=== PATIENT | male | born 1970 | race Caucasian/White ===

== ENCOUNTER 2024-07-07 10:05 | Day surgery (SDC) | payer MEDICARE, MEDICAID, SELFPAY ==
[2024-07-05 13:35] VITALS: BMI 24.3
--- NOTE | 2024-07-06 00:01 | EKG_ITS ---
[facility] Test Date: 2024-07-06 Pat Name: LAVERN AYALA Department: Room: - Gender: Male Computer Analyst: STUDENT : 1970 Requested By: Endy Gorman Order Number: [id number] Reading MD: Endy Gorman Measurements Intervals [place] Rate: 65 P: 37 NH: 127 QRS: -13 QRSD: 112 T: 68 QT: 408 QTc: 424 Interpretive Statements SINUS RHYTHM SEPTAL MYOCARDIAL INFARCTION , OF INDETERMINATE AGE Compared to ECG 03/29/2024 20:40:50 Myocardial infarct finding now present /store/S0/[id number].pdf
[2024-07-06 10:42] LABS: Basophils % (Auto) 1 % (0-2.5); Eosinophils # (Auto) 0.2 Thou/mm3 (0.0-0.5); Eosinophils % (Auto) 2 % (0-10); Hematocrit 40.9 % (41.0-53.0); Hemoglobin 13.1 g/dL (13.5-16.0); Immature Granulocytes % (Auto) 0 % (0-0); Immature Granulocytes Auto 0.02 Thou/mm3 (0.00-0.00); Lymphocytes # (Auto) 1.3 Thou/mm3 (1.0-4.8); Lymphocytes % (Auto) 18 % (10-50); Mean Corpuscular Hemoglobin 26.3 pg (25.0-35.0); Mean Corpuscular Volume 82 fL (80-100); Monocytes # (Auto) 0.4 Thou/mm3 (0.0-0.8); Monocytes % (Auto) 6 % (0-12); Neutrophils # (Auto) 5.3 Thou/mm3 (1.8-7.7); Neutrophils % (Auto) 73 % (37-80); Nucleated Red Blood Cell % 0 /100 WBC (0); Platelet Count 314 Thou/mm3 (140-440); Red Blood Count 4.99 Miln/mm3 (4.50-5.90); White Blood Count 7.2 Thou/mm3 (3.8-10.6)
[2024-07-06 10:55] LABS: Anion Gap 5 (7-16); BUN/Creatinine Ratio 20 Ratio (12-20); Blood Urea Nitrogen 45 mg/dL (9-23); Calcium 9.9 mg/dL (8.3-10.6); Carbon Dioxide 31.6 mMol/L (20.0-31.0); Chloride 99 mMol/L (98-107); Creatinine (Component) 2.2 mg/dL (0.6-1.3); Estimated Creatinine Clearance 39.6 mL/min (>60); Glucose 266 mg/dL (74-106); Osmolality,Calculated 292 (275-295); Potassium 4.8 mMol/L (3.4-5.1); Sodium 136 mMol/L (136-145); eGFR 35 See Note
[2024-07-06 11:25] LABS: Partial Thromboplastin Time 25.8 Seconds (22.0-36.0); Prothrombin Time 10.9 Seconds (9.0-12.2)
[2024-07-07] VITALS (12 sets, daily range): BP systolic 137–170; BP diastolic 79–99; PULSE 65–85; RESP 12–24; TEMP 37; O2SAT 92–99
[2024-07-07] MEDS: INSULIN HUM REGULAR 1 UNIT/0.01 ML (PER UNIT) 5 UNIT SC (13:52)
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
[2024-07-07] MEDS: SODIUM CHLORIDE 0.9% 500 ML 500 ML 350 ML IV (15:20)
[2024-07-07] MEDS: SODIUM CHLORIDE 0.9% 1000 ML 500 ML 100 ML IV (15:20)
[2024-07-07] MEDS: ONDANSETRON INJ 2 MG/ML INJ 2 ML 4 MG IV (15:22)
--- NOTE | 2024-07-07 17:15 | PC.NURSE ---
TR band removed at this time. Surgical site asymptomatic, no active bleeding, no hematoma noted on right upper extremity or around the surgical site. Capillary refill < 3 seconds. No noted changes in color or temperature on right upper extremity. Patient denies general and localized pain, no loss in sensation, no tingling or numbness felt to right upper extremity. Tagaderm and Coban wrap applied. Will continue to monitor
--- NOTE | 2024-07-07 17:30 | PC.NURSE ---
Surgical site remains with no significant changes at this time. Surgical area continues with raised area proximal and distal to the surgical site, bruised reshma-surgical area, no active bleeding noted on right upper extremity or around the surgical site. Capillary refill <3 seconds, hand noted to be cool to touch. No noted changes in color on right upper extremity. Patient denies general and localized pain, reports some tingling; but no numbness felt to right upper extremity. Tagaderm and Coban wrap in place, dry, and intact. Will continue to monitor
== END 2024-07-07 18:05 | disposition home health service (06) ==
PROVIDERS: PCP Family Medicine; Referring Provider Internal Medicine Cardiovascular Disease; Visit Provider Internal Medicine Cardiovascular Disease
DX: I25.10 Atherosclerotic heart disease of native coronary artery without angina pectoris (principal); E11.22 Type 2 diabetes mellitus with diabetic chronic kidney disease; Z86.73 Personal history of transient ischemic attack (TIA), and cerebral infarction without residual deficits; Z01.810 Encounter for preprocedural cardiovascular examination; I13.10 Hypertensive heart and chronic kidney disease without heart failure, with stage 1 through stage 4 chronic kidney disease, or unspecified chronic kidney disease; N18.30 Chronic kidney disease, stage 3 unspecified
CPT/HCPCS: 93458; 36415; 80048; 85025; 85610; 85730; 93005; 99152; 99153; A4649; C1887; C1894; J0171; J0461; J1643; J1815; J2250; J2310; J2371; J2405; J3010; J3490; J7030; J7040; Q9967; J1644; J2305

== ENCOUNTER 2024-07-08 14:10 | Emergency (ER) | payer MEDICARE, MEDICAID, SELFPAY ==
[2024-07-08 14:16] VITALS: BP 145/86; PULSE 96; RESP 24; TEMP 36.7; O2SAT 97; BMI 23.6
--- NOTE | 2024-07-08 14:17 | EKG_ITS ---
[facility] Test Date: 2024-07-08 Pat Name: LAVERN AYALA Department: Room: - Gender: Male Environmental Health Physician: : 1970 Requested By: Matthew Lopez (POOJA) Order Number: [id number] Reading MD: Matthew Lopez (POOJA) Measurements Intervals [place] Rate: 94 P: 52 CT: 165 QRS: 18 QRSD: 101 T: 82 QT: 370 QTc: 463 Interpretive Statements SINUS RHYTHM POSSIBLE LEFT ATRIAL ENLARGEMENT [-0.1mV P WAVE IN V1/V2] Compared to ECG 07/06/2024 10:14:17 Myocardial infarct finding no longer present /store/S0/[id number]/[id number]
--- NOTE | 2024-07-08 14:28 | XR_ITS ---
Examination: PA lateral chest 2 views TECHNIQUE: Upright PA lateral chest 2 views Exam date and time: July 08, 2024 1440 hours Comparison 2023 INDICATIONS: Onset chest pain today. FINDINGS: Normal heart size Subsegmental atelectasis right lower lung zone No pneumonia or pulmonary edema IMPRESSION: No pneumonia or pulmonary edema
--- NOTE | 2024-07-08 14:28 | PD.EDRME ---
Rapid Medical Screening Exam RME Arrival date/time: 07/08/24 14:10 54-year-old male presents emergency department with complaints of chest pain nausea vomiting patient reports having angiogram yesterday Chief Complaint: Chest Pain Time Seen by Provider: 07/08/24 14:28 Vital signs: Vital Signs Temperature 98.1 F 07/08/24 14:16 Pulse Rate 96 07/08/24 14:16 Respiratory Rate 24 H 07/08/24 14:16 Blood Pressure 145/86 H 07/08/24 14:16 Pulse Oximetry (%) 97 07/08/24 14:16 Oxygen Delivery Method Room Air 07/08/24 14:16
[2024-07-08] MEDS: METOCLOPRAMIDE INJ 5 MG/ML VIAL 2 ML 10 MG IVP (15:27)
[2024-07-08] MEDS: ONDANSETRON INJ 2 MG/ML INJ 2 ML 4 MG IV (15:27)
[2024-07-08] MEDS: SODIUM CHLORIDE 0.9% 1000 ML 1,000 ML 999 ML IV (15:28)
[2024-07-08 15:32] VITALS: BP 176/98; PULSE 99; RESP 17; O2SAT 97
[2024-07-08 15:48] LABS: Basophils % (Auto) 0 % (0-2.5); Eosinophils % (Auto) 0 % (0-10); Hematocrit 39.6 % (41.0-53.0); Immature Granulocytes % (Auto) 0 % (0-0); Immature Granulocytes Auto 0.03 Thou/mm3 (0.00-0.00); Lymphocytes # (Auto) 0.8 Thou/mm3 (1.0-4.8); Lymphocytes % (Auto) 9 % (10-50); Mean Corpuscular HGB Conc 32.8 g/dl (31.0-37.0); Mean Corpuscular Hemoglobin 26.4 pg (25.0-35.0); Mean Corpuscular Volume 80 fL (80-100); Monocytes # (Auto) 0.3 Thou/mm3 (0.0-0.8); Monocytes % (Auto) 3 % (0-12); Neutrophils # (Auto) 8.1 Thou/mm3 (1.8-7.7); Neutrophils % (Auto) 87 % (37-80); Nucleated Red Blood Cell % 0 /100 WBC (0); Platelet Count 305 Thou/mm3 (140-440); RDW Standard Deviation 40.6 fL (35.1-43.9); Red Blood Count 4.93 Miln/mm3 (4.50-5.90); White Blood Count 9.2 Thou/mm3 (3.8-10.6)
[2024-07-08 16:02] LABS: Prothrombin Time 11.3 Seconds (9.0-12.2)
[2024-07-08 16:10] LABS: B-Type Natriuretic Peptide 71 pg/mL (0-100)
[2024-07-08 16:11] LABS: Alanine Aminotransferase 23 U/L (10-49); Albumin, Serum 4.6 gm/dL (3.5-5.0); Albumin/Globulin Ratio 1.4 (1.2-2.2); Alkaline Phosphatase 101 U/L (46-116); Amylase 52 U/L (30-118); Anion Gap 10 (7-16); Aspartate Amino Transferase 17 U/L (0-34); BUN/Creatinine Ratio 18 Ratio (12-20); Bilirubin,Total 1.1 mg/dL (0.3-1.2); Blood Urea Nitrogen 36 mg/dL (9-23); Calcium 9.9 mg/dL (8.3-10.6); Calcium (Corrected) 9.9 mg/dL (8.5-10.1); Carbon Dioxide 27.4 mMol/L (20.0-31.0); Chloride 100 mMol/L (98-107); Estimated Creatinine Clearance 43.6 mL/min (>60); Globulin 3.3 gm/dL (2.3-3.5); Glucose 367 mg/dL (74-106); Lipase 24 U/L (12-53); Magnesium 2.2 mg/dL (1.6-2.6); Osmolality,Calculated 297 (275-295); Sodium 137 mMol/L (136-145); Total Protein 7.9 gm/dL (5.7-8.2); Troponin I < 0.020 ng/mL (0.0-0.045); eGFR 39 See Note
[2024-07-08 18:22] VITALS: BP 164/70; PULSE 94; RESP 16; O2SAT 98
--- NOTE | 2024-09-04 11:52 | PD.EDCHEST ---
ED Chest Pain RME/HPI General Chief Complaint: Chest Pain Stated Complaint: CHEST PAIN, PALPITATIONS S/P CARDIAC CATH Time Seen by Provider: 07/08/24 14:28 Arrival date/time: 07/08/24 14:10 RME / HPI RME / HPI narrative: 07/08/24 14:10 54-year-old male presents emergency department with complaints of chest pain nausea vomiting patient reports having angiogram yesterday This section includes all my notes and documentations, including HPI, PE, and ED course.? Anderson Renee MD HPI: 54 year old male here with N/V and chest/abominal pain. ROS: All negative except as documented in HPI. Physical Exam: General:? Alert and oriented.? No acute distress.?? Eyes:? Conjunctivae and lids clear.? EOMI.? PERRL. ENT:? No nasal congestion.? Pharynx normal.? Tympanic membrane normal bilaterally.??? Neck:? Supple.? No lymphadenopathy.? No JVD.?? Heart:? RRR.? Lungs:? No respiratory distress.? Good air movement.? No rhonchi, wheezing, rales.?? Chest:? No tenderness. Abdomen:? Soft and nontender.? Normal bowel sounds.? No distension.? No rebound or guarding.?? Back:? No CVA tenderness.?? Legs:? No clubbing, cyanosis, edema.? Skin:? Warm and dry.?? Neuro:? Alert and oriented X 3.? Cranial Nerves II-XII grossly intact.? No peripheral motor deficits. Musculoskeletal:? All major joints and bones are not tender with no limited ROM.? I reviewed all diagnostic test results. My interpretation of the EKG is sinus rhythm with nonspecific ST-T changes. My interpretation of the chest x-ray is no acute findings. Blood tests Glu 367. At this point, diagnoses include?Hyperglycemia and Vomiting. Treatment here included?IVF, Insulin, Zofran, and Reglan. Significant improvement noted subjectively and objectively. I discussed the case with our padded products finisher.? About the presentation and exam and diagnostics and treatments here.? And possible need of further care in the hospital.? Recommended outpatient followup. Based on my best medical judgment, made decision no further evaluation or treatment indicated at this time.? Patient understands and agrees to the discharge instructions customized and printed, see below. Discharge Instructions from Dr. Renee printed for you: 1. After extensive evaluation, there is no life-threatening condition. Such as heart attack. 2. Zofran and Reglan for nausea/vomiting. For good hydration, increase oral fluid and maintain clear urine. If dark or yellow, increase oral fluid. Clear liquid diet for 24 hours. 3. See a private doctor on 07/09/2024. Ask to review all test results and official radiology reports, to make sure you receive all necessary follow-ups and monitoring. To make sure there is no serious intra-abdominal condition, ask for help with more investigation not available here in the ER. Such as EGD or scoping the stomach, colonoscopy or scoping the colon, and referral to see pharmacy clerk. Ask to help you stay healthy, with good management of your diabetes, helping you to prevent future heart attacks and strokes, and with regular physical exam and health maintenance. 4. Seek immediate medical care with worsening or with any concerns. Anderson Renee MD Related Data Home Medications ?Medication ?Instructions ?Recorded ?Confirmed insulin glargine 100 unit/mL 100 unit subcut HS #0 vials 07/20/17 08/12/24 subcutaneous solution (Lantus U-100 Insulin) atorvastatin 40 mg tablet 80 mg PO HS 08/12/24 08/12/24 carvedilol 6.25 mg tablet 6.25 mg PO BID 08/12/24 08/12/24 omeprazole 20 mg capsule,delayed 20 mg PO QDAY 08/12/24 08/12/24 release Previous Rx's ?Medication ?Instructions ?Recorded amlodipine 10 mg tablet 10 mg PO QDAY #30 tabs 01/14/24 aspirin 81 mg tablet,delayed 81 mg PO QDAY #30 tabs 01/14/24 release clopidogrel 75 mg tablet 75 mg PO QDAY #30 tabs 01/14/24 furosemide 40 mg tablet 40 mg PO QAM #30 tabs 04/01/24 losartan 100 1 tab PO QDAY #30 tabs 04/01/24 mg-hydrochlorothiazide 12.5 mg tablet Allergies Allergy/AdvReac Type Severity Reaction Status Date / Time oxycodone Allergy Severe Rash Verified 01/08/25 15:32 Course Quality Measures none Orders Category Date Time Status CT Screening NOW Care 07/08/24 14:33 Completed EKG (ED ONLY) *Do not use* NOW Care 07/08/24 14:17 Completed Insert IV NOW Care 07/08/24 14:28 Completed EKG (ED Only) Stat Exams 07/08/24 14:17 Draft XR chest 2V Stat Exams 07/08/24 14:28 Completed Amylase Stat Lab 07/08/24 15:19 Completed B-Type Natriuretic Peptide Stat Lab 07/08/24 15:19 Completed CBC Stat Lab 07/08/24 15:19 Completed Comprehensive Metabolic Panel Stat Lab 07/08/24 15:19 Completed Lipase Stat Lab 07/08/24 15:19 Completed Magnesium Stat Lab 07/08/24 15:19 Completed Partial Thromboplastin Time Stat Lab 07/08/24 15:19 Completed Prothrombin Time with INR Stat Lab 07/08/24 15:19 Completed Troponin I Stat Lab 07/08/24 15:19 Completed Insulin Regular Med 07/08/24 17:42 Discontinued 10 unit IV X1 ONE Metoclopramide Inj [Reglan Inj] Med 07/08/24 14:32 Discontinued 10 mg IVP X1 ONE Ondansetron Inj [Zofran Inj] Med 07/08/24 14:28 Discontinued 4 mg IV X1 ONE Sodium Chloride 0.9% 1000 ml [Ns] 1,000 ml Med 07/08/24 14:32 Discontinued IV 999 mls/hr Vital Signs Vital signs: Vital Signs Temperature 98.1 F 07/08/24 14:16 Pulse Rate 96 07/08/24 14:16 Respiratory Rate 24 H 07/08/24 14:16 Blood Pressure 145/86 H 07/08/24 14:16 Pulse Oximetry (%) 97 07/08/24 14:16 Oxygen Delivery Method Room Air 07/08/24 14:16 Chest Pain Patient data External records reviewed:: [facility] previous records Clinical information provided by:: patient Social determinants that could affect healthcare access:: substance use Patient has the following chronic illnesses:: CAD How is presenting disease/condition affected by chronic disease/condition?: exacerbated by Evaluation data The following diagnostics were reviewed and interpreted by me:: lab results, radiology exam(s) and EKG tracing(s) Lab and/or radiology exams considered but not ordered:: none Interpretation Summary: normal diagnostics Medications / Prescriptions Medications or Prescriptions considered but not ordered:: none Medication administrations:: Medication Administration History Discontinued Medications Sodium Chloride (Ns) 1,000 mls @ 999 mls/hr IV .Q1H1M ONE Stop: 07/08/24 15:32 Last Infusion: 07/08/24 17:58 Dose: Infused Documented By: Admin: 07/08/24 15:28 Dose: 999 mls/hr Documented By: YURY Insulin Human Regular (Insulin Hum Regular 1 Unit/0.01 Ml (Per Unit)) 10 unit IV X1 ONE Stop: 07/08/24 17:43 Last Admin: 07/08/24 18:21 Dose: Not Given Documented By: YURY Non-Admin Reason: Patient Refused Metoclopramide HCl (Metoclopramide Inj 5 Mg/Ml Vial 2 Ml) 10 mg IVP X1 ONE; Protocol Stop: 07/08/24 14:33 Last Admin: 07/08/24 15:27 Dose: 10 mg Documented By: YURY Ondansetron HCl (Ondansetron Inj 2 Mg/Ml Inj 2 Ml) 4 mg IV X1 ONE; Protocol Stop: 07/08/24 14:29 Last Admin: 07/08/24 15:27 Dose: 4 mg Documented By: YURY IVF and Zofran and Reglan and Insulin Consultations Consultation(s) initiated? (list below): No Consultation #1 (Physician, Specialty, Details): I discussed the case with our padded products finisher.? About the presentation and exam and diagnostics and treatments here.? And possible need of further care in the hospital.? Recommended outpatient followup. Diagnosis Chest Pain Differential Diagnosis: pneumothorax, stable angina, unstable angina pectoris, atypical chest pain, st elevation myocardial infarction, costochondritis, chest pain and biliary colic Most likely diagnosis given after review of the tests above:: Hyperglycemia and Vomiting Admission Indicated Admission indicated?: not indicated Explain why admission is indicated or not indicated:: No criteria for admission Admission Request Was there a request for admission?: No Disposition Plan Disposition Plan: Discharge Discharge Attestation Discharge Attestation: The patient and all family members were given an opportunity to ask questions and understood the discharge instructions. Discharge instructions specifically effects, indications for sooner follow up or return to the emergency department, and the expected course of current diagnosis. Patient condition: Stable Discharge Plan Plan Patient Disposition: HOME (Self Care) Prescriptions/Referrals Prescriptions/Med Rec: No Action insulin glargine [Lantus U-100 Insulin] 100 U/ML solution 100 unit Sub-Q HS Qty: 0 amlodipine 10 mg tablet 10 mg PO QDAY Qty: 30 1RF clopidogrel 75 mg Tablet 75 mg PO QDAY Qty: 30 0RF aspirin 81 mg Tablet,Delayed Release (Dr/Ec) 81 mg PO QDAY Qty: 30 0RF carvedilol 6.25 mg Tablet 6.25 mg PO BID Rx Instructions: must administer with a meal/food omeprazole 20 mg Capsule,Delayed Release(Dr/Ec) 20 mg PO QDAY Rx Instructions: 30 min before morning meal atorvastatin 40 mg tablet 80 mg PO HS furosemide 40 mg tablet 40 mg PO QAM Qty: 30 0RF losartan-hydrochlorothiazide 100-12.5 mg tablet 1 tab PO QDAY Qty: 30 0RF Referrals: Gorge Dietz MD [Primary Care Provider] - In 1 week Problem List Clinical Impression: Vomiting, Hyperglycemia due to diabetes mellitus Patient/Caregiver Discharge Instructions Discharge Activity: activity as tolerated Education Materials: ED Diabetes with High Blood Sugar, ED Vomiting (Adult) Additional Instructions: Discharge Instructions from Dr. Renee printed for you: 1. After extensive evaluation, there is no life-threatening condition. Such as heart attack. 2. Zofran and Reglan for nausea/vomiting. For good hydration, increase oral fluid and maintain clear urine. If dark or yellow, increase oral fluid. Clear liquid diet for 24 hours. 3. See a private doctor on 07/09/2024. Ask to review all test results and official radiology reports, to make sure you receive all necessary follow-ups and monitoring. To make sure there is no serious intra-abdominal condition, ask for help with more investigation not available here in the ER. Such as EGD or scoping the stomach, colonoscopy or scoping the colon, and referral to see pharmacy clerk. Ask to help you stay healthy, with good management of your diabetes, helping you to prevent future heart attacks and strokes, and with regular physical exam and health maintenance. 4. Seek immediate medical care with worsening or with any concerns. Print Language: Liberian Stand Alone Forms: Rosa Award Info., Patient Portal Info Letter
== END 2024-07-08 18:22 | disposition home or self-care (01) ==
PROVIDERS: Nurse Practitioner Primary Care; Emergency Provider Emergency Medicine; PCP Family Medicine
DX: R07.9 Chest pain, unspecified (principal)
CPT/HCPCS: 36415; 71046; 80053; 80307; 81001; 82150; 83690; 83735; 83880; 84484; 85025; 85379; 85610; 85730; 93005; 96361; 96374; 96375; 99285; J2405; J2765; J7030

== ENCOUNTER 2024-08-12 07:06 | Day surgery (SDC) | payer MEDICARE, MEDICAID, SELFPAY ==
[2024-08-10 17:56] VITALS: BMI 24.3
--- NOTE | 2024-08-11 09:27 | EKG_ITS ---
[facility] Test Date: 2024-08-11 Pat Name: LAVERN AYALA Department: Room: - Gender: Male Motion And Time Study Teacher: ROMAIN : 1970 Requested By: Endy Gorman Order Number: [id number] Reading MD: Endy Gorman Measurements Intervals [place] Rate: 70 P: 43 ID: [id number] QRS: -1 QRSD: 96 T: 59 QT: 393 QTc: 427 Interpretive Statements SINUS RHYTHM INCOMPLETE RIGHT BUNDLE BRANCH BLOCK SEPTAL MYOCARDIAL INFARCTION , OF INDETERMINATE AGE Compared to ECG 07/08/2024 14:26:26 Incomplete right bundle-branch block now present Myocardial infarct finding now present /store/S0/[id number]/[id number]
[2024-08-11 10:32] LABS: Basophils % (Auto) 1 % (0-2.5); Eosinophils # (Auto) 0.1 Thou/mm3 (0.0-0.5); Eosinophils % (Auto) 2 % (0-10); Hematocrit 36.8 % (41.0-53.0); Hemoglobin 11.9 g/dL (13.5-16.0); Immature Granulocytes % (Auto) 0 % (0-0); Immature Granulocytes Auto 0.02 Thou/mm3 (0.00-0.00); Lymphocytes % (Auto) 16 % (10-50); Mean Corpuscular HGB Conc 32.3 g/dl (31.0-37.0); Mean Corpuscular Hemoglobin 27.4 pg (25.0-35.0); Mean Corpuscular Volume 85 fL (80-100); Monocytes # (Auto) 0.4 Thou/mm3 (0.0-0.8); Monocytes % (Auto) 6 % (0-12); Neutrophils # (Auto) 4.8 Thou/mm3 (1.8-7.7); Neutrophils % (Auto) 76 % (37-80); Nucleated Red Blood Cell % 0 /100 WBC (0); Platelet Count 305 Thou/mm3 (140-440); RDW Standard Deviation 45.7 fL (35.1-43.9); Red Blood Count 4.35 Miln/mm3 (4.50-5.90); White Blood Count 6.4 Thou/mm3 (3.8-10.6)
[2024-08-11 10:42] LABS: Partial Thromboplastin Time 25.1 Seconds (22.0-36.0); Prothrombin Time 10.6 Seconds (9.0-12.2)
[2024-08-11 10:43] LABS: Anion Gap 7 (7-16); BUN/Creatinine Ratio 19 Ratio (12-20); Blood Urea Nitrogen 36 mg/dL (9-23); Calcium 9.5 mg/dL (8.3-10.6); Carbon Dioxide 25.8 mMol/L (20.0-31.0); Chloride 108 mMol/L (98-107); Creatinine (Component) 1.9 mg/dL (0.6-1.3); Estimated Creatinine Clearance 45.9 mL/min (>60); Glucose 152 mg/dL (74-106); Osmolality,Calculated 292 (275-295); Potassium 4.9 mMol/L (3.4-5.1); Sodium 141 mMol/L (136-145); eGFR 41 See Note
[2024-08-12] VITALS (13 sets, daily range): BP systolic 122–163; BP diastolic 62–97; PULSE 62–75; RESP 11–20; TEMP 36.1–36.3; O2SAT 94–98
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
== END 2024-08-12 14:30 | disposition home or self-care (01) ==
PROVIDERS: PCP Advanced Practice Midwife; Referring Provider Internal Medicine Cardiovascular Disease; Visit Provider Internal Medicine Cardiovascular Disease
PROC: (CPT C9600; principal; 2024-08-12 08:30)
DX: I25.10 Atherosclerotic heart disease of native coronary artery without angina pectoris (principal); E11.22 Type 2 diabetes mellitus with diabetic chronic kidney disease; Z79.4 Long term (current) use of insulin; Z86.73 Personal history of transient ischemic attack (TIA), and cerebral infarction without residual deficits; I10 Essential (primary) hypertension; N18.30 Chronic kidney disease, stage 3 unspecified
CPT/HCPCS: C9600; 36415; 80048; 85025; 85347; 85610; 85730; 93005; 99152; 99153; A4649; C1725; C1753; C1769; C1874; C1887; C1894; J0171; J0461; J1643; J2250; J2310; J2371; J3010; J3490; Q9967; A9270; J2305